=== PATIENT | female | born 1960 | race Caucasian/White ===

== ENCOUNTER → 2018-12-15 | Outpatient (CLI) | payer OTHER ==
--- NOTE | 2018-12-19 16:06 | PATH ---
[address] [address] PATHOLOGY RPT PROCEDURE Name: LENIN CROSS Room: [facility]#: [id number] Admission: 12/15/18 Date of : 60 Discharge: Report #: [id number] Path Case #: [id number] Note [facility] Accession Number: [id number] TESTS RESULT FLAG UNITS REF RANGE LAB Clinician Provided Cytology Information No. of containers..01 Other (Miscellaneous) Source: RT THYROID #2 DIAGNOSIS: RT THYROID #2, IMAGE GUIDED FINE NEEDLE ASPIRATION BETHESDA CATEGORY II BENIGN. CONSISTENT WITH A BENIGN FOLLICULAR NODULE WITH ABUNDANT COLLOID AND ADEQUATE FOLLICULAR CELLS PRESENT. THIS INTERPRETATION INCLUDES EVALUATION OF A CELL BLOCK. Signed out by: 02 Mil Garcia MD, Pathologist NPI- [id number] Performed by: 01 Cassandra Corcoran, Assault Boat Coxswain ([facility]) Gross description: 01 26ML, RED, CLOUDY /LCS 02/28/1840 0000 Local FLAG LEGEND: L-Low Normal,H-High Normal,LL-Alert Low,HH-Alert High <-Panic Low,>-Panic High,A-Abnormal,AA-Critical Abnormal Performed at: [address] [place] [address] Pito Amador MD, [address] [place] [id number] Mil Garcia MD, Specimen Comment: A courtesy copy of this report has been sent to Specimen Comment: [phone]. Specimen Comment: Report sent to Performed at: [address], [place], [place] [id number] MD Pito Amador MD Phone: [phone]
--- NOTE | 2018-12-20 15:07 | PATH ---
[address] [address] PATHOLOGY RPT PROCEDURE Name: LENIN CROSS Room: [facility]#: [id number] Admission: 12/15/18 Date of : 60 Discharge: Report #: [id number] Path Case #: [id number] Note [facility] Accession Number: [id number] TESTS RESULT FLAG UNITS REF RANGE LAB Clinician Provided Cytology Information No. of containers..01 Other (Miscellaneous) Source: RT THYROID #1 DIAGNOSIS: RT THYROID #1, IMAGE-GUIDED FNA BETHESDA CATEGORY II. BENIGN ADEQUATE/CELLULAR POPULATION OF THYROID FOLLICULAR CELLS WITH SCATTERED HURTHLEOID FEATURES AND BACKGROUND OF ABUNDANT COLLOID. THIS INTERPRETATION INCLUDES A CELL BLOCK. Signed out by: 02 Mil Garcia MD, Pathologist NPI- [id number] Performed by: Maki Resendiz, Video Conference Specialist ([facility]) Gross description: 01 16ML, RED, BERNIEY /CHRISTIE 02/28/1840 0000 Local FLAG LEGEND: L-Low Normal,H-High Normal,LL-Alert Low,HH-Alert High <-Panic Low,>-Panic High,A-Abnormal,AA-Critical Abnormal Performed at: [address] [place] [address] Pito Amador MD, [address] [place] [address] [address] [place] [address] Mil Garcia MD, Specimen Comment: A courtesy copy of this report has been sent to Specimen Comment: [phone]. Specimen Comment: Report sent to Performed at: [address], [place], [place] [id number] MD Pito Amador MD Phone: [phone]
== END | disposition home or self-care (01) ==
LOC: M.ULTRA 08:05
DX: E04.1 Nontoxic single thyroid nodule (principal)